=== PATIENT | male | born 2000 | race Two or more races ===

== ENCOUNTER 2019-08-12 19:18 | Emergency (ER) | payer OTHER ==
[~2019-08-12] VITALS: Ht 177.8 cm; Wt 72.7 kg
[2019-08-12 19:18] VITALS: BP 135/71
--- NOTE | 2019-08-13 10:24 | REP ---
LEFT CLAVICLE: 08/12/2019. CLINICAL HISTORY: Trauma, pain, and swelling. FINDINGS: A midshaft left clavicular fracture with apex dorsal angulation. AC joint intact. No pneumothorax. Adjacent ribs and shoulder intact. IMPRESSION: 1. A midshaft left clavicular fracture with apex superior angulation. Electronically Signed by Jaleel Abreu MD 08/13/2019 11:01 A
== END 2019-08-12 20:30 | disposition home or self-care (01) ==
LOC: M ED 19:18
DX: S42.002A Fracture of unspecified part of left clavicle, initial encounter for closed fracture (principal); V00.311A Fall from snowboard, initial encounter; Y92.89 Other specified places as the place of occurrence of the external cause; Y93.23 Activity, snow (alpine) (downhill) skiing, snowboarding, sledding, tobogganing and snow tubing